=== PATIENT | female | born 1975 | race Caucasian/White ===

== ENCOUNTER 2020-05-09 23:49 | Emergency (ER) | payer OTHER ==
[~2020-05-09] VITALS: Ht 157.5 cm; Wt 60.3 kg
[~2020-05-09 23:49] MED LIST: ABILIFY20 MG PO; ADDERALL 15 MG15 MG PO; MACROBID 100 M100 M1 PO; MACRODANTIN100 MG PO; PRISTIQ50 MG PO; TRILEPTAL600 MG PO; XANAX XR1 MG PO; ZOFRAN ODT4 MG DISSOLVE; ZOFRAN4 MG PO
[2020-05-10 00:47] LABS: ABSOLUTE NEUTROPHILS 4.8 thou/uL (1.4-8.2); BASOPHILS 0.5 % (0.0-2.0); EOSINOPHILS 2.2 % (0.0-3.0); HEMATOCRIT 35.7 % (37.0-47.0); HEMOGLOBIN 11.9 gm/dL (12.0-15.0); LYMPHOCYTES 26.6 % (24.0-44.0); MCH 28.3 pg (26.0-34.0); MCHC 33.3 g/dL (28.0-37.0); MCV 85.2 fL (80.0-100.0); MONOCYTES 7.7 % (1.0-8.0); PLATELET COUNT 349 thou/uL (150-400); RBC 4.19 mil/uL (4.20-5.00); RDW 14.2 % (10.5-14.5); WBC 7.6 thou/uL (4.0-11.0)
[2020-05-10 00:50] LABS: CREATININE 0.9 mg/dL (0.6-1.0); POTASSIUM 3.8 mmol/L (3.5-5.1)
[2020-05-10 00:58] LABS: ALBUMIN 3.8 g/dL (3.4-5.0); TOTAL BILIRUBIN 0.2 mg/dL (0.2-1.0); TOTAL PROTEIN 7.2 g/dL (6.4-8.2)
[2020-05-10] MEDS ORDERED: ONDANSETRON ODT8 MG PO (05:06)
[2020-05-10] MEDS ORDERED: TRAMADOL 50 MG50 MG PO (05:06)
[2020-05-10 06:30] VITALS: BP 100/58
--- NOTE | 2020-05-11 07:42 | EKG ---
[facility] [place] [address] ELECTROCARDIOGRAM REPORT Name: DEIDRA COFFEY Room #: DEP [facility]#: [id number] Admission: 05/09/20 Attend Phys: Discharge: 05/10/20 Date of : 71 Report #: [id number] THIS REPORT FOR: cc: [facility] - Clinic physician unknown [facility] - Clinic physician unknown Darwin Munroe MD [facility] ~ THIS REPORT FOR: //name// [facility] ED Test Date: 2020-05-10 Test Time: 00:15:30 Pat Name: DEIDRA COFFEY Department: Room: Gender: Devops Engineer: : 1975 Requested By: Roberto Carlos Phelan Order Number: [id number] MD: Drawin Munroe Measurements Intervals [place] Rate: 84 P: 68 MA: 149 QRS: 55 QRSD: 71 T: 32 QT: 345 QTc: 408 Interpretive Statements Sinus rhythm Right ventricular conduction delay No previous ECG available for comparison Electronically Signed On 05-11-2020 7:42:24 [employer] by Darwin Munroe [email or web address] <ELECTRONICALLY SIGNED> By: Darwin Munroe MD, [facility] 05/11/20 0742 D: 1114 Darwin Munroe MD, FAC /EPI
== END 2020-05-10 06:41 | disposition home or self-care (01) ==
LOC: ER 23:49
PROVIDERS: Emergency Medicine
DX: R11.2 Nausea with vomiting, unspecified (principal); R10.11 Right upper quadrant pain; J02.9 Acute pharyngitis, unspecified; J06.9 Acute upper respiratory infection, unspecified; G43.909 Migraine, unspecified, not intractable, without status migrainosus; K21.9 Gastro-esophageal reflux disease without esophagitis; Z90.49 Acquired absence of other specified parts of digestive tract; Z79.899 Other long term (current) drug therapy; Z88.8 Allergy status to other drugs, medicaments and biological substances; Z20.828 Contact with and (suspected) exposure to other viral communicable diseases